=== PATIENT | male | born 1930 | race Caucasian/White ===

== ENCOUNTER 2017-03-22 09:45 | Outpatient (CLI) | payer MEDICARE, OTHER ==
--- NOTE | 2017-03-22 12:07 | CT ---
CT CHEST NONCONTRAST: 03/22/2017 HISTORY: Pulmonary abscess with medical treatment. Followup. COMPARISON: 02/04/2017 FINDINGS: Parenchymal scarring in the left lower lobe now surrounds a cystic cavity that is 1.7 cm in greatest diameter. No thick-walled abscess is now apparent. Minimal pleural fluid is evident. Nodular parenchymal opacity throughout each lung has otherwise resolved. No new areas of parenchyma l mass or infiltrate are apparent. Lack of contrast limits evaluation of the mediastinum. No bulky adenopathy is apparent. There is p rominent calcification in the arterial structures. Tiny calcification at the superior pole of the left kidney is stable. IMPRESSION: 1. Near complete interval resolution of the left lower lobe abscess, now residual cystic cavity and surrounding scarring. No new abnormalities are apparent. 2. Atherosclerosis. POS: ELENA
== END 2017-03-22 09:46 | disposition home or self-care (01) ==
LOC: CT 09:45
PROVIDERS: ATTEND Internal Medicine
DX: R91.8 Other nonspecific abnormal finding of lung field (principal); I70.90 Unspecified atherosclerosis
CPT/HCPCS: 71250

== ENCOUNTER 2017-04-08 09:12 | Outpatient (CLI) | payer MEDICARE, OTHER ==
--- NOTE | 2017-04-08 10:00 | RAD ---
TWO VIEWS OF THE CHEST: COMPARISON: 02/04/2017 HISTORY: Dyspnea. FINDINGS: Two views of the chest show a normal sized cardiomediastinal silhouette. The patient is status post sternotomy. Increased interstitial lung markings are present. There is no evidence of consolidati on, mass, or pleural effusion. A spinal stimulation device is seen in the spine. IMPRESSION: Chronic interstitial lung markings, particularly in the left lung base. These interstitial lung mar kings likely represent sequelae from resolution of the previously seen left lower lobe pneumonia. POS: ELENA
== END 2017-04-08 09:13 | disposition home or self-care (01) ==
LOC: RAD 09:12
PROVIDERS: ATTEND Internal Medicine
DX: R06.00 Dyspnea, unspecified (principal); R91.8 Other nonspecific abnormal finding of lung field
CPT/HCPCS: 71020

== ENCOUNTER 2017-09-15 09:13 | Outpatient (CLI) | payer MEDICARE, OTHER ==
--- NOTE | 2017-09-15 11:39 | CT ---
CT OF CHEST PERFORMED WITHOUT CONTRAST ENHANCEMENT: Date: 09/15/17 COMPARISON: 03/22/17 study. HISTORY: Pulmonary infiltrate follow-up. History of a left lower lobe abscess. FINDINGS: The right lung is clear of any infiltrative process or evidence of a pleural effusion. The cystic cavity that was noted on the prior examination has collapsed. The pleural and parenchymal changes in the left lower lobe and lingula show improvement, mainly improvement to some of the parenc hymal lung changes. There are coronary artery calcifications seen. I do not appreciate any significant mediastinal adenop athy on this noncontrast study. IMPRESSION: Continued resolution of some of the left lower lobe parenchyma change. The small cystic cavity seen o n the prior examination has now collapsed. There are residual parenchymal changes in the lingula and left lower lobe, and pleural changes in the left base. Pleural changes appear improved as compared to the prior study. POS: ELENA
== END 2017-09-15 09:14 | disposition home or self-care (01) ==
LOC: CT 09:13
PROVIDERS: ATTEND Internal Medicine
DX: R91.8 Other nonspecific abnormal finding of lung field (principal); J98.4 Other disorders of lung
CPT/HCPCS: 71250

== ENCOUNTER 2018-11-24 15:09 | Outpatient (CLI) | payer MEDICARE, OTHER | END 2018-11-24 15:10 | disposition home or self-care (01) | LOC: CTENTCT 15:09 | PROVIDERS: ATTEND Specialist | DX: R51 Headache (principal) | CPT/HCPCS: 70486 ==

== ENCOUNTER 2019-03-08 09:42 | Outpatient (CLI) | payer MEDICARE, OTHER ==
--- NOTE | 2019-03-08 09:50 | RAD ---
XR Chest Pa Lat @ [facility] HISTORY: Dyspnea COMPARISON: 04/08/2017 study FINDINGS: Heart size within normal limits. There are postop sternotomy changes. Chronic appearing ple ural and parenchymal lung changes on the left are stable. Postoperative changes of the right shoulder again noted. IMPRESSION: Stable exam.
== END 2019-03-08 09:43 | disposition home or self-care (01) ==
LOC: RAD 09:42
PROVIDERS: ATTEND Internal Medicine
DX: R06.00 Dyspnea, unspecified (principal)
CPT/HCPCS: 71046